=== PATIENT | female | born 1980 | race Caucasian/White ===

== ENCOUNTER 2016-07-21 13:26 | Emergency (ER) | payer OTHER ==
[~2016-07-21] VITALS: Ht 160 cm; Wt 109.0 kg
[~2016-07-21 13:26] MED LIST: AMIT25TA9 PO; LEVO75TA10 PO
[2016-07-21 13:28] VITALS: TEMP 98.9; Ht 160 cm; Wt 109.0 kg
--- OUTSIDE RECORDS SUMMARY | 2016-07-21 13:30 | XMS REPORT | Referral Summary ---
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 Role Phone Yancybhaskar Jose Primary Care Physician [phone] Encounter VC Date(s): 02/17/16 - 02/17/16 [facility] Ashley Newton [address] [place] [address]- [place] Discharge Disposition: 01-Home or Self Care Attending Physician: Martina Tanner PA-C Admitting Physician: Martina Tanner PA-C Vital Signs No data available for this section Problem List Condition Effective Dates Status Health Status Informant Abnormal cervical Active Papanicolaou smear(Confirmed) HAKAN (generalized Active anxiety disorder)(Confirmed) S/p Active hysterectomy(Confirm ed) High risk sexual Active behavior(Confirmed) Hypertension(Confirm Active ed) Adult Active hypothyroidism(Confi rmed) High blood Active sugar(Confirmed) IBS (irritable bowel Active syndrome)(Confirmed) Chronic Active migraine(Confirmed) Obesity(Confirmed) Active patient Snorings(Confirmed) Active Allergies, Adverse Reactions, Alerts Substance Reaction Severity Status penicillin Active Medications amitriptyline 25 mg oral tablet See Instructions, TAKE ONE TABLET BY MOUTH AT BEDTIME, # 30 tabs, 3 Refill(s), eRx: [facility] #[id number], TAKE ONE TABLET BY MOUTH AT BEDTIME Start Date: 10/07/15 Status: Ordered ketorolac 0.4% ophthalmic solution 1 drops, Eye-Left, QID, X 10 days, # 1 bottles, 0 Refill(s), Pharmacy: [id number] Start Date: 02/17/16 Stop Date: 02/27/16 Status: Ordered levothyroxine 75 mcg (0.075 mg) oral tablet 75 mcg 1 tabs, Oral, Daily, # 90 tabs, 1 Refill(s), Pharmacy: [facility] # [id number], 1 tabs Oral Daily,x90 days Start Date: 08/12/15 Stop Date: 02/08/16 Status: Ordered Results No data available for this section Immunizations No data available for this section Procedures Procedure Date Related Diagnosis Body Site Colonoscopy normal1 02/07/16 Colonoscopy normal2 2011 History of vaginal hysterectomy3 2011 Cholecystectomy 2004 H/O thyroidectomy 2002 1Random biopsies negative for colitis. 2in [place] 3ovary sparing Social History Social History Type Response Smoking Status Never smoker Assessment and Plan No data available for this section
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
--- OUTSIDE RECORDS SUMMARY | 2016-07-21 13:30 | XMS REPORT | Continuity of Care Document ---
Author Author [facility] Organization [facility] Address Unknown Phone Unavailable Support Name Relationship Address Phone RAFI JOHNSON Caregiver [address] [place] [address] [place] [address] Unavailable SARMAD SHULTZ FACS, MD Caregiver [address] [place] [address] [place] [address] Unavailable JENNIFER IGNACIO Next Of Kin [address] [facility] [place], [place] [id number] Insurance Providers Guarantor MateusBarbie chandra Maria L Address [address] [place] [address] Email DENIED NO TO PT PORT Payer Self Pay Subscriber's Name Barbie Ignacio Relationship 18 Self Advance Directives Directive Response Recorded Date/Time Dr Doll Resuscitation Status Full Code 02/04/16 3:34pm Resuscitation Documents on File No 02/07/16 9:37am DPOA for Healthcare Only No 02/07/16 9:37am Living Will No 02/07/16 9:37am Problems Past Problems Medical Problem Onset Date Headache Unknown Sinusitis Unknown Medications Current Home Medications Medication Dose Units Route Directions Days Qty Instructions Start Date Amitriptyline Hcl 25 Mg Tablet 1 Tab Oral Daily 02/04/16 Levothyroxine Sodium 75 Mcg Tablet 75 Mcg Oral Before Breakfast 01/10/16 Social History Social History Problem Response Recorded Date/Time Onset Date Status Reason for Hospitalization COLONOSCOPY 02/07/2016 11:00am Not Applicable Not Applicable Chewing Tobacco Status No 02/04/2016 11:46am Not Applicable Not Applicable Hx Substance Use No 02/04/2016 11:46am Not Applicable Not Applicable Hx Alcohol Use No 02/04/2016 11:46am Not Applicable Not Applicable Has the pt used tobacco in the last 12 months No 02/04/2016 11:46am Not Applicable Not Applicable Query Response Start Date Stop Date Smoking Status Never smoker Hospital Discharge Instructions Instructions: Care Instructions: I was in the hospital because (patient own words): COLONSCOPY Discharge Diet: As Tolerated Discharge Activity: Do NOT drive today Follow Up Appointments: Follow up with Dr. Shultz as needed. Pending Lab / Results: Will be notified Patient Instructions: If biopsies performed during colonoscopy, results/recommendations will be mailed in about 2-3 weeks. Expected Signs/Symptoms: None Notify Physician If: Call physician if temperature is GREATER than 101.5, severe abdominal pain or severe rectal bleeding. During Business Hours:: Call [phone] After Business Hours:: Call [phone] ([facility]) Pain Management/Treatment: Call Dr. Shultz if increasing abdominal pain Wound/Incision Care: N/A Condition at time of discharge: Good Plan of Care Discharge Date 02/07/16 11:26am Prescriptions See Medication Section Functional Status No functional status results. Allergies, Adverse Reactions, Alerts Allergen Type Severity Reaction Status Last Updated Penicillin Allergy Intermediate HIVES Active 01/10/16 Immunizations Query Response on File Recorded Date/Time Hx Influenza Vaccination No 02/04/16 11:46am Hx Pneumococcal Vaccination No 02/04/16 11:46am Hx Influenza Vaccination No 02/04/16 11:46am Vital Signs Acute Vital Signs Vital Response Date/Time Temperature (Fahrenheit) 97.3 deg F (96.8 - 99.1) 02/07/2016 10:52am Temperature (Calculated Celsius) 36.43135 degrees C (36.0 - 37.3) 02/07/2016 10:52am Temperature Source Temporal 02/07/2016 10:52am Pulse Rate (adult) 68 bpm (60 - 100) 02/07/2016 11:20am Respiratory Rate 20 breaths/min (10 - 20) 02/07/2016 11:20am O2 Sat by Pulse Oximetry 98 % (90 - 100) 02/07/2016 11:20am Oxygen Delivery Method Room Air 02/07/2016 11:20am Blood Pressure 135/65 mm Hg 02/07/2016 11:20am Blood Pressure Source Automatic Cuff 02/07/2016 11:20am Height (Feet) 5 feet 02/07/2016 8:55am Height (Inches) 3.00 inches 02/07/2016 8:55am Weight (Kilograms) 101.600 kg 02/07/2016 8:55am Body Mass Index (BMI) 39.7 02/07/2016 8:55am Results Laboratory Results Test Name Result Units Flags Reference Collection Date/Time Result Date/ Time Comments White Blood Count 7.2 T/MM3 4.5-11.0 01/10/2016 9:48am 01/10/2016 9: 54am Red Blood Count 4.66 M/MM3 4.00-5.20 01/10/2016 9:48am 01/10/2016 9: 54am Hemoglobin 13.9 GM/DL 12-16 01/10/2016 9:48am 01/10/2016 9:54am Hematocrit 42.1 % 36-46 01/10/2016 9:48am 01/10/2016 9:54am Mean Corpuscular Volume 90.3 UM3 80-100 01/10/2016 9:48am 01/10/2016 9: 54am Mean Corpuscular Hemoglobin 29.8 UUG 26-34 01/10/2016 9:48am 2015 9:54am Mean Corpuscular Hemoglobin Concent 33.0 GM/DL 31-37 01/10/2016 9:48am 01/10/2016 9:54am RDW Standard Deviation 41.4 FL 36.9-50.2 01/10/2016 9:48am 01/10/2016 9 :54am Platelet Count 241 T/MM3 130-400 01/10/2016 9:48am 01/10/2016 9:54am Mean Platelet Volume 9.5 UM3 9.4-12.4 01/10/2016 9:48am 01/10/2016 9: 54am Neutrophils (%) (Auto) 62.3 % 33-66 01/10/2016 9:48am 01/10/2016 9: 54am Lymphocytes (%) (Auto) 28.0 % 23-45 01/10/2016 9:48am 01/10/2016 9: 54am Monocytes (%) (Auto) 4.9 % 0-9.0 01/10/2016 9:48am 01/10/2016 9:54am Eosinophils (%) (Auto) 3.8 % 0-4 01/10/2016 9:48am 01/10/2016 9:54am Basophils (%) (Auto) 0.6 % 0-2 01/10/2016 9:48am 01/10/2016 9:54am Immature Granulocyte % (Auto) 0.4 % 0.0-0.5 01/10/2016 9:48am 2015 9:54am Absolute Neutrophils (auto) 4.5 T/MM3 1.8-7.7 01/10/2016 9:48am 2015 9:54am Absolute Lymphocytes (auto) 2.0 T/MM3 1-4.8 01/10/2016 9:48am 2015 9:54am Absolute Monocytes (auto) 0.4 T/MM3 0-0.8 01/10/2016 9:48am 01/10/2016 9:54am Absolute Eosinophils (auto) 0.3 T/MM3 0-0.5 01/10/2016 9:48am 2015 9:54am Absolute Basophils (auto) 0.0 T/MM3 0-0.2 01/10/2016 9:48am 01/10/2016 9:54am Absolute Immature Granulocyte (auto 0.03 T/MM3 0.00-0.03 01/10/2016 9: 48am 01/10/2016 9:54am Icterus Index < 2 0-7 01/10/2016 9:48am 01/10/2016 10:04am Chemistry Specimen Hemolysis < 15 0-25 01/10/2016 9:48am 01/10/2016 10:04am 0-25: Specimen Exhibited No Hemolysis. Turbidity < 20 0-20 01/10/2016 9:48am 01/10/2016 10:04am Sodium Level 144 MEQ/L 134-144 01/10/2016 9:48am 01/10/2016 10:04am Potassium Level 4.1 MEQ/L 3.6-5 01/10/2016 9:48am 01/10/2016 10:04am Chloride Level 104 MEQ/L 98-107 01/10/2016 9:48am 01/10/2016 10:04am Carbon Dioxide Level 28 MEQ/L 22-30 01/10/2016 9:48am 01/10/2016 10: 04am Anion Gap 12 MEQ/L 5-15 01/10/2016 9:48am 01/10/2016 10:04am Blood Urea Nitrogen 14.0 MG/DL 7-17 01/10/2016 9:48am 01/10/2016 10: 04am Creatinine 0.6 MG/DL L 0.7-1.2 01/10/2016 9:48am 01/10/2016 10:04am BUN/Creatinine Ratio 23 RATIO 6-26 01/10/2016 9:48am 01/10/2016 10: 04am Glomerular Filtration Rate Calc 112 01/10/2016 9:48am 01/10/2016 10 :04am Glucose Level 100 MG/DL 65-110 01/10/2016 9:48am 01/10/2016 10:04am Calculated Osmolality 278 MOSM/KG 261-280 01/10/2016 9:48am 01/10/2016 10:04am Calcium Level 9.3 MG/DL 8.4-10.2 01/10/2016 9:48am 01/10/2016 10:04am Total Bilirubin 0.50 MG/DL 0.20-1.30 01/10/2016 9:48am 01/10/2016 10: 04am Alkaline Phosphatase 73 U/L 38-126 01/10/2016 9:48am 01/10/2016 10: 04am Total Protein 7.9 G/DL 6.3-8.2 01/10/2016 9:48am 01/10/2016 10:04am Albumin 4.3 G/DL 3.5-5.0 01/10/2016 9:48am 01/10/2016 10:04am Globulin 3.6 G/DL 2.4-3.6 01/10/2016 9:48am 01/10/2016 10:04am Albumin/Globulin Ratio 1.2 RATIO 1.1-2.2 01/10/2016 9:48am 01/10/2016 10:04am Aspartate Amino Transf (AST/SGOT) 19 U/L 14-36 01/10/2016 9:48am 2015 10:04am Alanine Aminotransferase (ALT/SGPT) 28 U/L 9-52 01/10/2016 9:48am 01/09 10:04am Troponin I < 0.012 ng/ml 0-0.12 01/10/2016 9:48am 01/10/2016 10:15am Troponin values with a difference of 55% increase from orginal troponin value represent a true biological DELTA value. (%increase Calc=Orginal Troponin value, divided by subsequent Troponin value, multiplied by 100) Urine Collection Type CLEANCATCH-MIDSTREAM 01/10/2016 10:58am 01/09 11:12am Urine Color YELLOW YELLOW 01/10/2016 10:58am 01/10/2016 11:12am Urine Turbidity CLEAR CLEAR 01/10/2016 10:58am 01/10/2016 11:12am Urine Specific [place] 1.015 1.015-1.025 01/10/2016 10:58am 2015 11:12am Urine pH 8.0 5.0-8.0 01/10/2016 10:58am 01/10/2016 11:12am Urine Leukocyte Esterase NEGATIVE NEGATIVE 01/10/2016 10:58am 2015 11:12am Urine Nitrite NEGATIVE NEGATIVE 01/10/2016 10:58am 01/10/2016 11: 12am Urine Protein NEGATIVE NEGATIVE 01/10/2016 10:58am 01/10/2016 11: 12am Urine Glucose (UA) NEGATIVE NEGATIVE 01/10/2016 10:58am 01/10/2016 11 :12am Urine Ketones NEGATIVE NEGATIVE 01/10/2016 10:58am 01/10/2016 11: 12am Urine Urobilinogen 0.2 EU/DL NORMAL 01/10/2016 10:58am 01/10/2016 11: 12am Urine Bilirubin NEGATIVE NEGATIVE 01/10/2016 10:58am 01/10/2016 11: 12am Urine Blood NEGATIVE NEGATIVE 01/10/2016 10:58am 01/10/2016 11:12am Urinalysis Comment MICROSCOPIC NOT IND. 01/10/2016 10:58am 2015 11:12am Procedures Procedure Status Date Provider(s) THER/PROPH/DIAG INJ IV PUSH Completed 01/10/16 TX/PRO/DX INJ NEW DRUG ADDON Completed 01/10/16 TX/PRO/DX INJ NEW DRUG ADDON Completed 01/10/16 Colonoscopy with polypectomy and biopsy Completed 02/07/16 SARMAD SHULTZ MD, FACS, CWS Encounters Encounter Location Arrival/Admit Date Discharge/Depart Date Attending Provider Departed Surgical Day Care [facility] 02/07/16 8:41am 02/07/16 11 :26am SARMAD SHULTZ FACS CWS MD Departed Emergency Room [facility] 01/10/16 8:52am 01/10/16 11: 15am MALCOLM PHILLIPS DO
--- OUTSIDE RECORDS SUMMARY | 2016-07-21 13:31 | XMS REPORT | Referral Summary ---
Author Author [facility] Organization [facility] Address Unknown Phone Unavailable Care Team Providers Care Senior Clinical Research Associate Name Role Phone Jose Robledo Primary Care Physician [phone] Encounter VC Date(s): 01/12/16 - 01/12/16 [facility] [address] [place] [address] [place] [id number] Discharge Diagnosis: Blood in the stool Discharge Disposition: 01-Home or Self Care Attending Physician: Tex Montalvo MD Admitting Physician: Tex Montalvo MD Vital Signs Most recent to 1 oldest [Reference Range]: Temperature Tympanic 36.8 degC [36.6-38.1 degC] (01/12/16 2:35 PM) Peripheral Pulse 78 bpm Rate [60-100 bpm] (01/12/16 2:35 PM) Blood Pressure 128/78 mmHg [90-140/60-90 mmHg] (01/12/16 2:35 PM) Problem List Condition Effective Dates Status Health [...] BEDTIME, # 30 tabs, 3 Refill(s), eRx: [facility] #[id number], TAKE ONE TABLET BY MOUTH AT BEDTIME Start Date: 10/07/15 Status: Ordered levothyroxine 75 mcg (0.075 mg) oral tablet 75 mcg 1 tabs, Oral, Daily, # 90 tabs, 1 Refill(s), Pharmacy: [facility] # [id number], 1 tabs Oral Daily,x90 days Start Date: 08/12/15 Stop Date: 02/08/16 Status: Ordered Results No data available for this section Immunizations No data available for this section Procedures Procedure Date Related Diagnosis Body Site Colonoscopy normal1 2011 History of vaginal hysterectomy2 2011 Cholecystectomy 2005 H/O thyroidectomy 2003 1in [place] 2ovary sparing Social History Social History Type Response Smoking Status Never smoker Assessment and Plan Extracted from: Title: Ambulatory Patient Education Author: Tex Montalvo MD Date: Family Medicine Gastrointestinal Bleeding Gastrointestinal (GI) bleeding means there is bleeding somewhere along the digestive tract, between the mouth and anus. CAUSES There are many different problems that can cause GI bleeding. Possible causes include: Esophagitis. This is inflammation, irritation, or swelling of the esophagus. Hemorrhoids.These are veins that are full of blood (engorged) in the rectum. They cause pain, inflammation, and may bleed. Anal fissures.These are areas of painful tearing which may bleed. They are often caused by passing hard stool. Diverticulosis.These are pouches that form on the colon over time, with age, and may bleed significantly. Diverticulitis.This is inflammation in areas with diverticulosis. It can cause pain, fever, and bloody stools, although bleeding is rare. Polyps and cancer. Colon cancer often starts out as precancerous polyps. Gastritis and ulcers.Bleeding from the upper gastrointestinal tract ( near the stomach) may travel through the intestines and produce black, sometimes tarry, often bad smelling stools. In certain cases, if the bleeding is fast enough, the stools may not be black, but red. This condition may be life -threatening. SYMPTOMS Vomiting bright red blood or material that looks like coffee grounds. Bloody, black, or tarry stools. DIAGNOSIS Your caregiver may diagnose your condition by taking your history and performing a physical exam. More tests may be needed, including: X-rays and other imaging tests. Esophagogastroduodenoscopy (EGD). This test uses a flexible, lighted tube to look at your esophagus, stomach, and small intestine. Colonoscopy. This test uses a flexible, lighted tube to look at your colon. TREATMENT Treatment depends on the cause of your bleeding. For bleeding from the esophagus, stomach, small intestine, or colon, the caregiver doing your EGD or colonoscopy may be able to stop the bleeding as part of the procedure. Inflammation or infection of the colon can be treated with medicines. Many rectal problems can be treated with creams, suppositories, or warm baths. Surgery is sometimes needed. Blood transfusions are sometimes needed if you have lost a lot of blood. If bleeding is slow, you may be allowed to go home. If there is a lot of bleeding, you will need to stay in the hospital for observation. HOME CARE INSTRUCTIONS Take any medicines exactly as prescribed. Keep your stools soft by eating foods that are high in fiber. These foods include whole grains, legumes, fruits, and vegetables. Prunes (1 to 3 a day) work well for many people. Drink enough fluids to keep your urine clear or pale yellow. SEEK IMMEDIATE MEDICAL CARE IF: Your bleeding increases. You feel lightheaded, weak, or you faint. You have severe cramps in your back or abdomen. You pass large blood clots in your stool. Your problems are getting worse. MAKE SURE YOU: Understand these instructions. Will watch your condition. Will get help right away if you are not doing well or get worse. This information is not intended to replace advice given to you by your health care provider. Make sure you discuss any questions you have with your health care provider. Document Released: 04/06/2001 Document Revised: 03/26/2013 Document Reviewed: [facility] Patient Information 2016 [employer] [facility]. Bloody Diarrhea Bloody diarrhea can be caused by many different conditions. Most of the time bloody diarrhea is the result of food poisoning or minor infections. Bloody diarrhea usually improves over 2 to 3 days of rest and fluid replacement. Other conditions that can cause bloody diarrhea include: Internal bleeding. Infection. Diseases of the bowel and colon. Internal bleeding from an ulcer or bowel disease can be severe and requires hospital care or even surgery. DIAGNOSIS To find out what is wrong your caregiver may check your: Stool. Blood. Results from a test that looks inside the body (endoscopy). TREATMENT Get plenty of rest. Drink enough water and fluids to keep your urine clear or pale yellow. Do not smoke. Solid foods and dairy products should be avoided until your illness improves. As you improve, slowly return to a regular diet with easily-digested foods first. Examples are: Bananas. Rice. [place]. Crackers. You should only need these for about 2 days before adding more normal foods to your diet. Avoid spicy or fatty foods as well as caffeine and alcohol for several days. Medicine to control cramping and diarrhea can relieve symptoms but may prolong some cases of bloody diarrhea. Antibiotics can speed recovery from diarrhea due to some bacterial infections. Call your caregiver if diarrhea does not get better in 3 days. SEEK MEDICAL CARE IF: You do not improve after 3 days. Your diarrhea improves but your stool appears black. SEEK IMMEDIATE MEDICAL CARE IF: You become extremely weak or faint. You become very sweaty. You have increased pain or bleeding. You develop repeated vomiting. You vomit and you see blood or the vomit looks black in color. You have a fever. This information is not intended to replace advice given to you by your health care provider. Make sure you discuss any questions you have with your health care provider. Document Released: 04/09/2006 Document Revised: 04/30/2015 Document Reviewed: [facility] Patient Information 2016 [employer]. No follow up information was provided. Extracted from: Title: Office Visit Note Author: Tex Montalvo MD Date: 01/12/16 Assessment/Plan 1.Blood in the stool Ordered: Office Visit Level 4 New 29824 Plan: Colonoscopy I did review patient's chart including note performed by PCPs air export agent from December 20, 2015. Was able to identify priorattempted colonoscopy from April 2012. Scope was not able to be completely advanced through the colon. No mucosal abnormalities however were notedinvolving the transverse colon and descending colon. I informed the patient that with this history ofrectal bleeding and diarrhea would recommend that she undergo a repeat colonoscopy at this point time. I informed the patient that even if no significant mucosal abnormalitieswere notedat the time of her colonoscopy we would likely perform random biopsies given her history for chronic diarrhea to rule in or rule out the process of microscopic/collagenous colitis. Risk of endoscopy was discussed with the patient. Risks include but are not inclusive of bleeding and/or perforation requiring surgery. Patient understood and was scheduled.
--- OUTSIDE RECORDS SUMMARY | 2016-07-21 13:31 | XMS REPORT | Referral Summary ---
Author Author [facility], [facility] Organization [facility] Address Unknown Phone Unavailable Care Team Providers Care Director Of Admissions Name Role Phone Jose Robledo Primary Care Physician [phone] Encounter VC Date(s): 02/17/16 - 02/17/16 [facility], [address] [place] [phone] [place] Discharge Diagnosis: Left conjunctivitis Discharge Disposition: 01-Home or Self Care Attending Physician: Abdulaziz Hunt DO Vital Signs Most recent to 1 oldest [Reference Range]: Temperature Tympanic 36.6 degC [36.6-38.1 degC] (02/17/16 1:48 PM) Peripheral Pulse 105 bpm Rate [60-100 bpm] *HI* (02/17/16 1:48 PM) Blood Pressure 122/74 mmHg [90-140/60-90 mmHg] (02/17/16 1:48 PM) SpO2 95 % (02/17/16 1:48 PM) Problem List Condition Effective Dates Status [...] BEDTIME, # 30 tabs, 3 Refill(s), eRx: [facility] #[id number], TAKE ONE TABLET BY MOUTH AT BEDTIME Start Date: 10/07/15 Status: Ordered ketorolac 0.4% ophthalmic solution 1 drops, Eye-Left, QID, X 10 days, # 1 bottles, 0 Refill(s), Pharmacy: [id number] Start Date: 02/17/16 Stop Date: 02/27/16 Status: Ordered levothyroxine 75 mcg (0.075 mg) oral tablet 75 mcg 1 tabs, Oral, Daily, # 90 tabs, 1 Refill(s), Pharmacy: [facility] # [id number], 1 tabs Oral Daily,x90 days Start Date: 08/12/15 Stop Date: 02/08/16 Status: Ordered Results No data available for this section Immunizations No data available for this section Procedures Procedure Date Related Diagnosis Body Site Colonoscopy normal1 02/07/16 Colonoscopy normal2 2011 History of vaginal hysterectomy2011 Cholecystectomy 2004 H/O thyroidectomy 2002 1Random biopsies negative for colitis. 2in [place] 3ovary sparing Social History Social History Type Response Smoking Status Never smoker Assessment and Plan Extracted from: Title: Office Visit Note Author: Abdulaziz Hunt DO Date: 02/17/16 Assessment/Plan Left conjunctivitis 1. This appears to be mild irritant conjunctivitis of the left eye 2. Ketorolac, one drop 4 times a day for 10 days to the affected eye. Ordered: ketorolac ophthalmic, 1 drops, Eye-Left, QID, X 10 days, # 1 bottles, 0 Refill( s), Pharmacy: [id number] Office Visit Level 3 Est [address]
[2016-07-21] MEDS ORDERED: IBUP-1724 PO (14:28)
--- OUTSIDE RECORDS SUMMARY | 2016-07-21 15:16 | XMS REPORT | Continuity of Care Document ---
Author Author [facility] Address Unknown Phone Unavailable Allergies Active [...] MD 625.9 FEM GENITAL SYMPTOMS NOS 04/25/2012 LKAE [place] 244.9 HYPOTHYROIDISM NOS 05/10/2012 [place] [...] Procedures Code [place] [address] X-RAY EXAM OF KNEE, 3 STEPHANIE BARBOSA [facility] 01/22/2011 52168 EMERGENCY DEPT VISIT STEPHANIE BARBOSA [facility] 01/22/2011 L1830 Ko immobilizer canvas longit STEPHANIE BARBOSA [facility] 01/22/2011 90353 ROUTINE VENIPUNCTURE [place] 02/21/2012 14712 ASSAY THYROID STIM HORMONE [place] 02/21/2012 81198 THER/PROPH/DIAG INJ, SC/IM STEPHANIE BARBOSA [facility] 03/25/2012 24551 EMERGENCY DEPT VISIT STEPHANIE BARBOSA [facility] 03/25/2012 J1885 KETOROLAC TROMETHAMINE INJ STEPHANIE BARBOSA [facility] 03/25/2012 83323 URINALYSIS, AUTO W/SCOPE [place] 06/04/2012 60963 ROUTINE VENIPUNCTURE ARIANE RILEY MD 07/02/2012 48479 METABOLIC PANEL TOTAL CA ARIANE RILEY MD 07/02/2012 45318 ASSAY OF MAGNESIUM ARIANE RILEY MD 07/02/2012 66416 ASSAY THYROID STIM HORMONE ARIANE RILEY MD 07/02/2012 27179 TRANSFERASE (AST) (SGOT) ARIANE RILEY MD 07/02/2012 16810 ALANINE AMINO (ALT) (SGPT) ARIANE RILEY MD 07/02/2012 47342 COMPLETE CBC W/AUTO DIFF WBC ARIANE RILEY MD 07/02/2012 44055 ROUTINE VENIPUNCTURE [place] 02/04/2013 52124 ASSAY THYROID STIM HORMONE [place] 02/04/2013 38591 ROUTINE VENIPUNCTURE ARIANE RILEY MD 03/02/2014 96282 ASSAY THYROID STIM HORMONE ARIANE RILEY MD 03/02/2014 70839 ROUTINE VENIPUNCTURE ARIANE RILEY MD 05/20/2014 02375 ASSAY THYROID STIM HORMONE ARIANE RILEY MD 05/20/2014 Results Test Result Range TSH - 04/25/12 09:56 TSH 2.07 UIUML 0.34-4.82 COMPLETE BLOOD COUNT - 05/10/12 10:54 WBC 7.7 10^3 4.8-10.8 Neut % 61.5 % 45-75 Lymph % 31.2 % 15-45 [place] % 3.7 % 1.7-9.3 Eos % 3.1 % 0-4 Baso % 0.5 % 0-2 Neut # 4.8 10^3 1.6-8.3 Lymph # 2.4 10^3 1.0-3.6 [place] # 0.3 10^3 0.1-0.6 Eos # 0.2 [...] % 45-75 Lymph % 28.4 % 15-45 [place] % 5.4 % 1.7-9.3 Eos % 3.3 % 0-4 Baso % 0.7 % 0-2 Neut # 5.8 10^3 1.6-8.3 Lymph # 2.6 10^3 1.0-3.6 [place] # 0.5 10^3 0.1-0.6 Eos # 0.3 [...] Bilirubin Negative Negative Ketones Negative Negative Specific [place] 1.010 1.005-1.030 Blood 2+ Negative pH 6.0 [...] % 45-75 Lymph % 38.7 % 15-45 [place] % 7.0 % 1.7-9.3 Eos % 3.3 % 0-4 Baso % 0.7 % 0-2 Neut # 3.3 10^3 1.6-8.3 Lymph # 2.6 10^3 1.0-3.6 [place] # 0.5 10^3 0.1-0.6 Eos # 0.2 [...] Status Pt. Type Provider Facility Loc./Unit Complaint [id number] 05/20/2014 08:15:00 05/20/2014 08 :15:00 DIS Outpatient ROSEMARY BARBOSA, [facility] LAB [id number] 03/02/2014 12:54:00 03/02/2014 12 :54:00 DIS Outpatient ROSEMARY BARBOSA, [facility] LAB [id number] 02/04/2013 14:49:00 02/04/2013 14 :49:00 DIS Outpatient [place] [facility] LAB [id number] 07/02/2012 14:57:00 07/02/2012 14 :57:00 DIS Outpatient ROSEMARY BARBOSA, [facility] LAB [id number] 07/02/2012 13:54:00 07/02/2012 13 :54:00 DIS Outpatient BETH BRASWELL MD [facility] LAB [id number] 06/04/2012 09:26:00 06/04/2012 09 :26:00 DIS Outpatient [place] [facility] LAB [id number] 05/17/2012 15:40:00 05/17/2012 15 :40:00 DIS Outpatient [place] [facility] OTHER [id number] 05/15/2012 12:00:00 05/15/2012 18 :15:00 DIS Outpatient TAY NICHOLS MD, CONSTANCE Melo [facility] OTHER [id number] 05/15/2012 12:00:00 05/15/2012 18 :15:00 DIS Outpatient BEVERLY HUTSON CRNA [facility] OTHER [id number] 05/10/2012 10:46:00 05/10/2012 10 :46:00 DIS Outpatient [place] [facility] OTHER [id number] 04/25/2012 09:51:00 04/25/2012 09 :51:00 DIS Outpatient [place] [facility] LAB [id number] 03/25/2012 11:48:00 03/25/2012 12 :45:00 DIS Emergency STEPHANIE BARBOSA, SAAD Monae [facility] ER [id number] 02/21/2012 08:46:00 02/21/2012 23 :59:59 CLS Outpatient [place] [id number] 01/22/2011 19:10:00 01/22/2011 23 :59:59 CLS Emergency SAAD BROWN MD
--- NOTE | 2016-07-21 15:22 | ERPDOC ---
Departure Disposition Decision Date: Jul 21, 2016 Disposition Decision Time: 17:31 Disposition: 01 DISCHARGED HOME, SELF-CARE Impression Impression Impression: Primary Impression: Knee injury Encounter type: initial encounter Laterality: left Qualified Codes: S89.92XA - Unspecified injury of left lower leg, initial encounter Condition: Stable Seen By: Mid-level only Referrals: RAFI JOHNSON (Family) Patient Instructions: Knee Pain (ED) Problems/Meds/Labs Reviewed?: Yes Medications reviewed and manag: Yes Additional Instructions: 1. Ice knee 15-20 minutes every 2 hours while awake 2. Take ibuprofen and tylenol as needed for pain 3. 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 Reports prior history of same. Pain reported to the knee and difficulty with ambulation. 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 Did not take any pain medication prior to arrival Occurred At: work Onset: Rapid Duration: 1-3 hrs Pain Scale: Now: 5/10 Method of Injury: twisted Modifying Factors: WORSENES WITH: movement Associated Symptoms: pain Allergies: Coded Allergies: Penicillins (Verified Allergy, Intermediate, HIVES, 07/21/16) Past History Past Medical History Metabolic: hypothyroidism Neurological: migraines Surgical History General: gallbladder, other (thyroid lobectomy) Reproductive/: hysterectomy, tubal ligation Family History Family PMH: FOUND: diabetes, other Vaccines Hx Influenza Vaccination: No Hx Pneumococcal Vaccination: No Social History Does patient use chewing tobac: No Second Hand Exposure: Yes Substance Use Type: does not use Alcohol Intake: none Marital Status: Sexuality: male partner Housing: house Household Members: spouse Service: No Current Occupational Status: employed 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 Occupational Hazard: No Review of Systems Constitutional Constitutional: DENIES: fever Musculoskeletal General: pain (left knee) All other Systems All Other Systems: Reviewed and Negative Exam General General Nourishment: appears stated age, no acute distress, obese General Body Habitus: well groomed Vital Signs: Temperature: 98.9, Source: Oral, Heart Rate: 90, Respiratory Rate : 18, BP: 146/78, Pulse Oximetry: 97 Height (Feet): 5 Height (Inches): 3.00 Musculoskeletal (brief) Musculoskeletal Brief: FOUND: tenderness (left medial knee) Musculoskeletal Joint : Joint: knee Joint Findings: FOUND: pain, NOT FOUND: ROM limited, deformity, discoloration, instability, swelling Neurologic RN Documented GCS Eye Opening: Verbal: Motor: Total: Differential Diagnoses Considering: Dislocation, Fracture, Sprain, Strain Progress Results/Orders Orders Procedure Category Date Status Time Knee Left 3 Views RAD 07/21/16 Resulted Ibuprofen (Motrin) PHA 07/21/16 Complete 15:30 Acetaminophen PHA 07/21/16 Complete (Tylenol Extra 16:15 Ct Lower Extremity Lt CT 07/21/16 Resulted W/O Cont Medications Current ED Medications Ibuprofen (Motrin) 800 mg O ONCE PO ; Start 07/21/16 at 15:30; Stop 07/21/16 at 15:31; Status DC Acetaminophen (Tylenol Extra Strength) 1,000 mg O ONCE PO Last administered on 07/21/16t 16:07; Start 07/21/16 at 16:15; Stop 07/21/16 at 16:16; Status DC Progress Progress 1730 - discussed ct findings with patient and plan for work comp f/u. pt has ibuprofen and tylenol at home which is her preference for pain meds. ice/ elevate. able to ambulate Xray Xray : Xray: Knee L Interpretation: Abnormal (possible femoral condyle fx), Reviewed Written Report CT CT : CT: Other (left lower extremity) Interpretation: Normal (old injuries-no acute fx), Reviewed Written Report GIULIANA CASTILLO APRN Jul 21, 2016 15:21
[2016-07-21] MEDS ORDERED: IBUPROFEN 800 MG TABLET PO ONE (15:30)
[2016-07-21] MEDS ORDERED: ACETAMINOPHEN 500 MG TABLET PO ONE (16:15)
--- NOTE | 2016-07-21 16:26 | DI ---
Indication: ITS.REASON: TWISTED KNEE PROCEDURE: KNEE LEFT 3 VIEWS: Encounter: Initial Comparison: None Findings: There is a small area of cortical step-off seen within the anterior aspect of the medial femoral condyle on the lateral view only. No additional area concerning for acute fracture. No dislocation. There is a chronic appearing ununited fracture fragment adjacent to the medial pole of the patella. Small joint effusion. Impression: Possible nondisplaced fracture of the medial femoral condyle. .
--- NOTE | 2016-07-21 17:19 | DI ---
Indication: ITS.REASON: r/o possible femoral condyle fx PROCEDURE: CT LOWER EXTREMITY LT W/O CONT: Encounter: Initial Comparison: Left knee radiographs from today Technique: Axial noncontrast CT imaging through the left knee was performed with coronal and sagittal two-dimensional reformats. Three-dimensional surface shaded volume rendered imaging was also created and reviewed. Automated Exposure Control and Iterative Reconstruction dose reducing techniques were utilized. Findings: The cortical irregularity seen on the comparison x-ray does not represent a fracture. This appears to be due to small osteophytes in the anterior femoral condyles. No acute fracture seen. Slight asymmetry of the trabecular pattern between the medial and lateral femoral condyles is probably chronic. Small calcification associated with the PCL insertion is probably due to old trauma. There is no joint effusion. Old ununited medial patellar avulsion fracture. Soft tissues appear normal. Impression: No acute osseous abnormality. If there is continued pain, MRI may be helpful for further evaluation. .
[2016-07-21 17:38] VITALS: BP 145/85; PULSE 78; RESP 19; O2SAT 96
== END 2016-07-21 17:38 | disposition home or self-care (01) ==
LOC: ED 13:26
DX: S89.92XA Unspecified injury of left lower leg, initial encounter (principal); W18.40XA Slipping, tripping and stumbling without falling, unspecified, initial encounter; Y93.01 Activity, walking, marching and hiking; Y92.9 Unspecified place or not applicable; Y99.0 Civilian activity done for income or pay